=== PATIENT | female | born 1960 ===

== ENCOUNTER → 2019-10-27 13:37 | Outpatient (CLI) | payer BC, SELFPAY ==
--- NOTE | ~2019-10-27 | CT_ITS ---
EXAMINATION: CT abdomen pelvis wo/w con DATE: 10/27/2019 14:27 INDICATION: Gross hematuria. TECHNIQUE: Computed tomography (CT) of the abdomen and pelvis was performed without and with intraven ous contrast using a total of 130 mL Omnipaque-350 intravenous contrast with a double-bolus technique for simultaneous opacification of the renal parenchyma and renal collecting system. Automated exposu re control and iterative reconstruction technique were employed. The dose-length product was 1664.01 mGy-cm. COMPARISON: None FINDINGS: The visualized portions of the lung bases demonstrate mild atelectasis. No pleural effusion. The hear t size is normal. No pericardial effusion. There is a small sliding hiatal hernia. There is diffuse h epatic steatosis. There is a 10 mm cyst in the liver. The gallbladder, spleen, pancreas, and adrenal glands are normal. There are eight stones in right kidney measuring up to 3 mm. There are cysts in le ft kidney measuring up to 13 mm. There are approximately 8 stones in left kidney measuring up to 3 mm . The ureters and bladder are well opacified and are normal. There are no dilated loops of bowel. The appendix is normal. There are no pathologically enlarged lymph nodes. There is no free intraperitone al fluid. There is mild lumbar spondylosis. IMPRESSION: 1. Small bilateral nonobstructing kidney stones. Reviewed, dictated and finalized at location A.
[2019-10-27 14:04] LABS: Estimated Glomerular Filt Rate > 60
== END ==
PROVIDERS: Visit Provider Urology
DX: N20.0 Calculus of kidney (principal)
CPT/HCPCS: 74178; Q9967